=== PATIENT | female | born 1960 | race Caucasian/White ===

== ENCOUNTER 2022-07-08 07:57 | Emergency (ER) | payer OTHER ==
[2022-07-08 08:17] VITALS: BP 165/89; PULSE 87
== END 2022-07-08 09:48 | disposition home or self-care (01) ==
LOC: DL.ED 07:57
DX: M54.2 Cervicalgia (principal); Z88.8 Allergy status to other drugs, medicaments and biological substances
CPT/HCPCS: 73000-LT; 99282; 99283